=== PATIENT | male | born 1955 | race Caucasian/White ===

== ENCOUNTER → 2017-12-11 | Outpatient (CLI) | payer OTHER ==
[~2017-12-11] MED LIST: ARTH650T6 PO; COMMODE 3-IN-11 MIS; DIAZ10TA PO; ECASA81 PO; FISHCAP4 PO; GLUC100013 PO; HYDR-3583 PO; MULTLIQ PO; POTA595T PO; TRAM50TA PO; WALKER WHEELS/F1 MIS
== END ==
LOC: CPRE 11:39
PROVIDERS: ATTEND Orthopaedic Surgery Orthopaedic Surgery of the Spine
DX: Z01.812 Encounter for preprocedural laboratory examination (principal)

== ENCOUNTER 2017-12-19 07:34 | Inpatient (IN) | payer OTHER ==
[~2017-12-19] VITALS: Ht 177.8 cm; Wt 105.8 kg
[~2017-12-19 07:34] MED LIST changes: -COMMODE 3-IN-11 MIS; -DIAZ10TA PO; -ECASA81 PO; -HYDR-3583 PO; -WALKER WHEELS/F1 MIS
[2017-12-19] MEDS ORDERED: VANCOMYCIN 1000 MG/NS 250 ML (for <70 kg) IV SCH ×2 (08:30)
[2017-12-19] MEDS ORDERED: METOPROLOL TARTRATE 25 MG TAB PO PRN (08:30)
[2017-12-19] MEDS ORDERED: SODIUM CHLORID 0.9% 500 ML IV PRN (08:30)
[2017-12-19] MEDS ORDERED: ceFAZolin 2 GM PREMIX 50 ML IV SCH (08:30)
[2017-12-19] MEDS ORDERED: POVIDONE IODINE 5% (ANTISEPSIS KIT) 4 APPLICATIONS EACH NARE PRN (08:30)
[2017-12-19] MEDS ORDERED: CHLORHEXIDINE GLUCONATE 4% SOLN 120 ML BTL TOPICAL SCH (08:30)
[2017-12-19] MEDS ORDERED: CHLORHEXIDINE GLUCONATE 2 % 1 PACK (2 CLOTHS) TOPICAL PRN (08:30)
[2017-12-19] MEDS ORDERED: LACTATED RINGER'S 1000 ML IV PRN (08:30)
[2017-12-19] MEDS ORDERED: EXPAREL PERI-ARTICULAR INJECTION (TOTAL VOL. 60 ML) P-ARTICULR SCH ×2 (09:00)
[2017-12-19 09:17] LABS: BILIRUBIN, URINE NEG (NEG); BLOOD, URINE NEG (NEG); GLUCOSE,URINE NEG (NEG); KETONE, URINE NEG (NEG); NITRITE,URINE NEG (NEG); PH, URINE 6.5 (5.0-8.5); SQUAMOUS EPITHELIAL CELL URINE <1 /hpf (0-5); URINE COLOR YELLOW (YELLW/STRAW); URINE LEUKOCYTE ESTERASE NEG (NEG)
[2017-12-19] MEDS ORDERED: BUPIVACAINE/EPINEPHRINE 0.25% 50 ML VIAL ONE (09:31)
[2017-12-19] MEDS ORDERED: GENTAMICIN SULFATE 80 MG/2 ML VIAL ONE (09:31)
[2017-12-19] MEDS ORDERED: ACETAMINOPHEN 1000 MG/100 ML 100 ML IV ONE (09:58)
[2017-12-19] MEDS ORDERED: SODIUM CHLORIDE 0.9% IV SCH (10:00)
[2017-12-19] MEDS ORDERED: TRANEXAMIC ACID IV SCH (10:00)
[2017-12-19] MEDS ORDERED: DEXAMETHASONE SOD PHOS 4 MG/ML VIAL IV ONE (12:00)
[2017-12-19] MEDS ORDERED: ONDANSETRON HCL 4 MG/2 ML VIAL IV ONE (12:00)
[2017-12-19] MEDS ORDERED: ROCURONIUM INJ 50 MG/5 ML SYRINGE IV PUSH ONE (12:00)
[2017-12-19] MEDS ORDERED: ePHEDrine/NS 25 MG/5 ML SYRINGE IV ONE (12:00)
[2017-12-19] MEDS ORDERED: LIDOCAINE HCL 1% PF 5 ML SYRINGE OTHER ONE (12:00)
[2017-12-19] MEDS ORDERED: LACTATED RINGER'S 1000 ML INJ 2,000 ML IV ONE (12:00)
[2017-12-19] MEDS ORDERED: PROPOFOL 200 MG/20 ML AMP IV ONE (12:00)
[2017-12-19] MEDS ORDERED: NALOXONE HCL 0.4 MG/ML AMP IV PUSH PRN (13:15)
[2017-12-19] MEDS ORDERED: Post-op Orders (for Pharmacy) XX ONE (13:15)
[2017-12-19] MEDS ORDERED: MORPHINE SULFATE 8 MG/ML INJ IM PRN (13:15)
[2017-12-19] MEDS ORDERED: ALUMINUM/MAGNESIUM/SIMETH 30 ML CUP PO PRN (13:15)
[2017-12-19] MEDS ORDERED: TEMAZEPAM 15 MG CAP PO PRN (13:15)
[2017-12-19] MEDS ORDERED: ONDANSETRON HCL 4 MG/2 ML VIAL IVP PRN (13:15)
--- NOTE | 2017-12-19 13:25 | PD.OP ---
cc: Jonathan Doyle MD Operative Report Date of Surgery: Dec 19, 2017 Preoperative Diagnosis: Avascular necrosis right hip. Osteoarthritis right hip, severe. Acetabular dysplasia, severe Postoperative Diagnosis: Same Procedure: Right total hip replacement arthroplasty, posterior exposure Anesthesia: Gen. Surgeon: Jonathan Doyle Molding Line Operator(s): DAVON Carbajal Operation and Findings: EBL: 900 cc INDICATION: Patient is a 62-year-old male with severe right hip dysplasia and degenerative changes associated with collapse of femoral head and findings consistent with very advanced avascular necrosis. He's had extensive conservative care. This dates back over a year. He now presents for surgical treatment. NOTE: Onelia Carbajal PA-C was present for the entire surgical procedure as my child life assistant. In my medical opinion her skill and care was necessary for the proper management of this patient. COMPONENTS: COMPANY: [employer] CUP: [place] 56 mm, sector series STEM: Size 6, high offset, Tamarack pressfit HEAD: 36 mm, ceramic 12/14 taper ALTRX: 36, neutral PROCEDURE: This patient was brought to the operating room and anesthetized in the supine position and positioned on the routine table in the clean air suite. The patient was then rolled to a right side up lateral position and held with a Biomet hip positioner. The hip and leg was scrubbed with alcohol followed by Hibiclens followed by chloro prep and draped sterilely. A timeout was done and antibiotics were given within a routine time window. A 4 inch incision was made starting along the posterior one third of the greater trochanter. The iliotibial band was opened in line with the incision. The Charnley retractors were positioned. The posterior capsule and external rotators were taken down together in a sleeve. The neck was cut at the right location. The head was removed from the wound. The acetabulum was inspected. Deep retractors were positioned. The acetabulum was severely dysplastic. There was almost no bone at the very top. We placed drill holes deep creating the area of adequate bone for fixation. We started with a 46 mm reamer and brought down to a [facility]. Slowly brought this up to 55 mm. This was trialed with the same size trial. The overall fit was satisfactory. The rim was touched with the next size reamer. The cup was placed in approximately 40 of abduction and 20 of forward flexion. We dialed back to A little bit from normal because of anteversion of the femoral stem. 2 dome screws were positioned. The final liner was positioned. Retractors were positioned allowing good visualization of the proximal femur. A box osteotome was utilized followed by a taper pin reamer followed by progressive broaching for the Tamarack stem. This was reamed and broached and eventually advanced to a size 6 stem. A trial reduction showed satisfactory stability. Offset was satisfactory. Leg length was reestablished. At 90 of flexion it was stable to 50 of internal rotation. The hip could not be subluxed anteriorly. The final stem was inserted in approximately 30 of anteversion. The final head was impacted. The hip was reduced and stability, offset and leg length was as previously noted. The posterior capsule and external rotators were repaired through bone with interrupted #2 Tycron sutures. The piriformis muscle was repaired with the same. The iliotibial band with interrupted #1 Vicryl sutures. Subcutaneous tissue was approximated with 2-0 Vicryl suture and skin with running intradermal 3-0 Vicryl followed by Steri-Strips and benzoin. A sterile dressing was applied.. The sponge count needle counts and instrument counts were all correct. The patient was awakened and taken to the recovery room in satisfactory condition FINDINGS: There was severe acetabular dysplasia. We were very satisfied with the final result. We had excellent fit anterior and posterior. There was a small defect at the top near the 12 o'clock position from about 11 to 12:30. An anterior osteophyte was removed with Endy. The stem was in about 30 of anteversion. We dialed the cup back a little bit. With full external rotation and extension we could not sublux the hip anteriorly. Jonathan Doyle MD Dec 19, 2017 13:25
[2017-12-19] MEDS ORDERED: ECASA81 PO (13:26)
[2017-12-19] MEDS ORDERED: HYDR-3583 PO (13:26)
[2017-12-19] MEDS ORDERED: DO NOT ADM ANY ANTICOAGULANT DRUGS PRN (13:38)
[2017-12-19] MEDS ORDERED: MIDAZOLAM HCL 2 MG/2 ML VIAL ONE (13:49)
[2017-12-19] MEDS ORDERED: MORPHINE SULFATE 4 MG/ML INJ ONE (13:50)
[2017-12-19] MEDS ORDERED: *ONDANSETRON 4 MG VIAL PERIprocedural Use ONLY ONE (13:57)
[2017-12-19] MEDS ORDERED: *morphine SULFATE 10 MG/ML PERIprocedure ONLY ONE (13:57)
[2017-12-19] MEDS: LACTATED RINGER'S 1000 ML INJ 1,000 ML IV SCH (14:00)
[2017-12-19] MEDS ORDERED: ASPIRIN EC 81 MG TABEC PO ONE (14:15)
--- NOTE | 2017-12-19 14:42 | RADRPT ---
EXAM DATE/TIME: 12/19/2017 13:54 [facility] COMPARISON: No previous studies available for comparison. INDICATIONS : Post op right total hip replacement. MEDICAL HISTORY : None. SURGICAL HISTORY : None. ENCOUNTER: Initial ACUITY: 1 day PAIN SCORE: 5/10 LOCATION: Right Hip FINDINGS: Examination of the hip demonstrates total hip arthroplasty in satisfactory position. The alignment is anatomic. CONCLUSION: Post surgical changes as above. Bar Sherman MD on December 19, 2017 at 14:40 Board Certified Radiologist. This report was verified electronically.
[2017-12-19 15:42] VITALS: BP 110/69; PULSE 72; RESP 16; TEMP 95.8; O2SAT 99
[2017-12-19] MEDS ORDERED: DIAZ10TA PO (15:53)
[2017-12-19] MEDS: ACETAMINOPHEN/HYDROcodone 325 MG/10 MG TAB PO PRN ×2 (16:03→20:18)
[2017-12-19] MEDS: MAGNESIUM HYDROXIDE SUSP 30 ML CUP PO SCH (20:17)
[2017-12-19] MEDS: POTASSIUM CHLORIDE 8 MEQ CONTROLLED RELEASE TAB PO SCH (20:17)
[2017-12-19] MEDS: ASPIRIN EC 81 MG TABEC PO SCH (20:17)
[2017-12-19 21:00] VITALS: BP 90/57; PULSE 80; RESP 18; TEMP 98.8; O2SAT 92
[2017-12-19] MEDS ORDERED: SENNOSIDES 8.6 MG TAB PO SCH (21:00)
[2017-12-19] MEDS ORDERED: WALKER WHEELS/F1 MIS (22:40)
[2017-12-19] MEDS ORDERED: COMMODE 3-IN-11 MIS (22:40)
--- NOTE | 2017-12-19 22:41 | HHI.DCPOC ---
Discharge Care Plan Diagnosis: (1) Osteoarthritis of right hip Your Health Problems Are: Difficulty with ADL Incision/Drains Inflammation Goals to Promote Your Health * To prevent worsening of your condition and complications * To maintain your health at the optimal level Directions to Meet Your Goals Take your medications as prescribed Follow your dietary instruction Follow activity as directed Keep your appointments as scheduled Take your immunizations and boosters as scheduled If your symptoms worsen call your PCP, if no PCP go to Urgent Care Center or Emergency Room Smoking is Dangerous to Your Health. Avoid second hand smoke Call the 24-hour hour crisis hotline for domestic abuse at Ela Faith Dec 19, 2017 22:41
--- NOTE | 2017-12-19 22:43 | HHI.FF ---
Face to Face Verification Diagnosis: (1) Osteoarthritis of right hip Physical Therapy Gait training, Safety evaluation, Transfer training, bed to chair Hip: Total hip, Protocol: Right, Posterior hip precautions, Abduction pillow while in bed, Progress to weight bearing Right LE Weight Bearing: WB as tolerated Additional Instructions PT 4 days/wk for 2 weeks. WBAT RLE. Posterior OSORIO precautions. Abd pillow when in bed for 2-3 weeks. Walker assist. Gait training. Nursing RN Days per Week: 2 x Week(s): 1 Dressing Changes: Do not change dressing Additional Instructions Vitals assessment. Dressing assessment - do not change unless saturated or erythema. I have seen patient Ankur Tim on 12/19/17. My clinical findings support the need for the requested home health care services because: Limited ability to care for self High risk of falls I certify that my clinical findings support that this patient is homebound because: Post-op weakness Unsteady gait/balance Ela Faith Dec 19, 2017 22:43
--- NOTE | 2017-12-19 22:48 | HHI.DS ---
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 He sought out treatment with his orthopaedic physician who took xrays and recommended conservative measures. He was treated prescription meloxicam and OTC nonsteroidal medications. As his pain increased he was given Tramadol for pain control. He began using a cane and occasionally a walker. Repeat images showed advancing arthritis and collapse of the femoral head indicating possible avascular necrosis. He was referred to our practice for surgical evaluation. After review of the studies surgical treatment was recommended in the form of right total hip arthorplasty, posterior approach. The patient agreed and now presents for the above. Significant Findings Laboratory Tests Test 12/19/17 08:30 Hospital Course Surgical treatment was performed on the day of admission without complication. He recovered well in PACU and was transferred to the orthopaedic floor. Pain was controlled with IV and oral medications. DVT prophylaxis was initiated with ASA 81mg twice daily. He was given medications for postop nausea. He was compliant with physical therapy and all posterior total hip restrictions including use of his abduction pillow. After 1 day he was found to be stable and discharged home with home health care. He was educated to continue home therapy, to ice the operative site daily, and to pursue a high fiber diet. He was given prescriptions for Sunflower 10mg and ASA 81mg. Pt Condition on Discharge: Stable Discharge Disposition: Disch w/ Home Health Serv Discharge Instructions Diet Instructions: As Tolerated, No Restrictions, High Fiber Diet Additional Diet Instructions: High fiber diet for 3-5 days postop Activities You Can Perform: Weight Bearing as Jenn Activities to Avoid: Strenuous Activity New Medications: Commode 3-in-1 (Commode 3-in-1) 1 Mis Mis EA .XX DIRECTED, #1 0 Refills Walker with Front Wheels (Walker with Front Wheels) 1 Mis Mis EA .XX DIRECTED, #[address] (Aspirin DR) 81 Mg Tabdr 81 MG PO BID for Prevent Blood Clot, #60 TAB Hydrocodone/Acetaminophen (Hydrocodone-Acetamin 10-325 mg) 10 Mg-325 Mg Tablet 1 TAB PO Q4H PRN for Pain, #50 TAB Continued Medications: Acetaminophen ER 8 HR (Arthritis Pain Reliever ER 8 HR) 650 Mg Tab 2 TAB PO Q8HR PRN for PAIN, TAB 0 Refills Fish Oil-Cholecalciferol (Fish Oil + D3) 1,200-1,000 Mg-Unit Cap 1 CAP PO DAILY for Nutritional Supplement, #30 CAP 0 Refills Glucosamine (Glucosamine) 1,000 Mg Cap 2000 MG PO BID for Herbal Supplements, CAP 0 Refills Multiple Vitamins W/ Minerals Liq (Certa-Bernarda Liq) 15 Ml Liq 15 ML PO DAILY for Nutritional Supplement, #1 BOTTLE 0 Refills Potassium Gluconate (Potassium Gluconate) 595 Mg (99 Mg) Tab 3 TAB PO BID Tramadol (Tramadol) 50 Mg Tab 50 MG PO BID PRN for PAIN, TAB 0 Refills Ela Faith Dec 19, 2017 22:48
[2017-12-20] MEDS: ACETAMINOPHEN/HYDROcodone 325 MG/10 MG TAB PO PRN ×4 (00:25→15:00)
[2017-12-20 00:40] VITALS: BP 133/83; PULSE 84; RESP 17; TEMP 98.3; O2SAT 96
[2017-12-20] MEDS: LACTATED RINGER'S 1000 ML INJ 1,000 ML IV SCH ×2 (01:53→09:23)
[2017-12-20 04:30] VITALS: BP 103/57; PULSE 61; RESP 17; TEMP 98.1; O2SAT 95
[2017-12-20 06:50] LABS: HEMATOCRIT 28.9 % (39.0-51.0)
[2017-12-20 08:00] VITALS: BP 112/67; PULSE 67; RESP 18; TEMP 97.4; O2SAT 99
[2017-12-20] MEDS: MAGNESIUM HYDROXIDE SUSP 30 ML CUP PO SCH ×2 (09:00→11:11)
[2017-12-20] MEDS: POTASSIUM CHLORIDE 8 MEQ CONTROLLED RELEASE TAB PO SCH (09:22)
[2017-12-20] MEDS: ASPIRIN EC 81 MG TABEC PO SCH (09:22)
[2017-12-20 12:00] VITALS: BP 106/63; PULSE 75; RESP 18; TEMP 96.6; O2SAT 96
--- NOTE | 2017-12-20 13:09 | PD.ORT.PN ---
Subjective Subjective Remarks Dong 'alright'. Moderate right hip and buttock pain. No radiating leg pain. Voiding easily at this point though he struggled slightly last night. No nausea. No new CP or SOB. Questions about surgery. Objective Vitals Vital Signs Date Time Temp Pulse Resp B/P (MAP) Pulse Ox O2 Delivery O2 Flow Rate FiO2 12/20/17 12:00 96.6 75 18 106/63 (77) 96 12/20/17 08:00 97.4 67 18 112/67 (82) 99 12/20/17 04:30 98.1 61 17 103/57 (72) 95 12/20/17 00:40 98.3 84 17 133/83 (100) 96 12/19/17 21:00 98.8 80 18 90/57 (68) 92 12/19/17 15:42 95.8 72 16 110/69 (83) 99 12/19/17 15:30 97.7 63 20 109/62 (78) 100 Simple Mask 2 12/19/17 14:30 59 20 108/61 (77) 100 Simple Mask 2 12/19/17 14:15 62 20 108/61 (77) 100 Simple Mask 2 12/19/17 14:00 68 20 117/59 (78) 100 Simple Mask 2 12/19/17 13:44 97.7 80 20 136/71 (92) 95 Simple Mask 2 I/O 12/19/17 12/19/17 12/19/17 12/20/17 12/20/17 12/20/17 07:00 15:00 23:00 07:00 15:00 23:00 Intake Total 3200 ml 1020 ml Output Total 3900 ml 300 ml 1800 ml Balance -700 ml -300 ml -780 ml Intake Oral 1020 ml IV Total 3200 ml Output Urine Total 300 ml 1800 ml Estimated Blood Loss 900 ml Other 3000 ml # Voids 1 # Bowel Movements 0 Result Diagram: 12/20/17 0557 Imaging Last 24 hours Impressions Hip X-Ray 12/19/17 1312 Signed Impressions: Service Date/Time: Tuesday, December 19, 2017 13:54 - CONCLUSION: Post surgical changes as above. Bar Sherman MD Procedures Right total hip arthroplasty, posterior approach Objective Remarks Sitting in chair Friend at bedside NAD RLE Posterior hip dressing c/d/i, minimal drainage, mild swelling, no erythema +motor at/ehl, +sens, +nvi Neg homans Assessment & Plan Ortho Post Op Day #: 1 Problem List: (1) Osteoarthritis of right hip ICD Codes: M16.11 - Unilateral primary osteoarthritis, right hip Qualifiers: Qualified Codes: M16.11 - Unilateral primary osteoarthritis, right hip (2) Avascular necrosis of bone of right hip ICD Codes: M87.051 - Idiopathic aseptic necrosis of right femur Assessment and Plan pod#1 s/p R OSORIO, posterior approach Doing well. Ortho stable. Ok to d/c home w [facility] today after PT class. PO pain control with Velva as needed. Hold dressing changes unless saturated. PT - WBAT LLE. Posterior OSORIO protocol. Abd pillow when in bed for 2-3 weeks. ASA 81mg bid for dvt prophylaxis. F/U in 2 weeks as scheduled. F2F written. Ela Faith Dec 20, 2017 13:09
== END 2017-12-20 16:36 | disposition home health service (06) | DRG 470 ==
LOC: HSDI 07:34 → N06A 15:45
PROVIDERS: ADMIT Orthopaedic Surgery Orthopaedic Surgery of the Spine; ATTEND Orthopaedic Surgery Orthopaedic Surgery of the Spine
PROC: 0SR904A Replacement of Right Hip Joint with Ceramic on Polyethylene Synthetic Substitute, Uncemented, Open Approach (ICD-10-PCS; principal; 2017-12-19 10:44)
DX: M16.11 Unilateral primary osteoarthritis, right hip (principal); M87.851 Other osteonecrosis, right femur; Q65.89 Other specified congenital deformities of hip; M25.751 Osteophyte, right hip; G62.9 Polyneuropathy, unspecified; R11.0 Nausea; M10.9 Gout, unspecified; F10.21 Alcohol dependence, in remission
CPT/HCPCS: 73502; 81001; 85014; 85018; 86850; 86900; 86901; 86920; 94150; C1776; J0131; J0690; J1100; J1580; J2250; J2270; J2405; J3010; J3370; J7050; J7120